=== PATIENT | female | born 1995 | race Two or more races ===

== ENCOUNTER 2018-05-15 16:28 | Emergency (ER) | payer OTHER ==
[~2018-05-15] VITALS: Ht 175.3 cm; Wt 56.7 kg
[~2018-05-15 16:28] MED LIST: ALLEGRA-D 12 H1 EACH PO; KETO10TA2 PO; PEPCID40 MG PO; TUSSI PRES-B L120 M1 PO; ZITHROMAX TRI-500 MG PO; ZOFRAN4 MG PO
== END 2018-05-15 20:02 | disposition home or self-care (01) ==
LOC: ER 16:28
DX: B34.9 Viral infection, unspecified (principal); K29.70 Gastritis, unspecified, without bleeding

== ENCOUNTER 2018-11-04 15:24 | Emergency (ER) | payer OTHER ==
[~2018-11-04] VITALS: Ht 175.3 cm; Wt 54.4 kg
== END 2018-11-04 20:49 | disposition home or self-care (01) ==
LOC: ER 15:24
DX: B34.9 Viral infection, unspecified (principal)

== ENCOUNTER 2019-02-09 13:51 | Emergency (ER) | payer OTHER ==
[~2019-02-09] VITALS: Ht 175.3 cm; Wt 54.4 kg
== END 2019-02-09 15:49 | disposition home or self-care (01) ==
LOC: ER 13:51
DX: B34.9 Viral infection, unspecified (principal)

== ENCOUNTER 2019-06-04 01:58 | Emergency (ER) | payer OTHER ==
[~2019-06-04] VITALS: Ht 175.3 cm; Wt 54.4 kg
[2019-06-04] MEDS ORDERED: NAPROXEN SODIU550 MG PO (03:57)
[2019-06-04] MEDS ORDERED: ORPHENADRINE C100 MG PO (03:57)
== END 2019-06-04 03:54 | disposition home or self-care (01) ==
LOC: ER 01:58
DX: S40.011A Contusion of right shoulder, initial encounter (principal); S30.0XXA Contusion of lower back and pelvis, initial encounter; S80.02XA Contusion of left knee, initial encounter; V49.49XA Driver injured in collision with other motor vehicles in traffic accident, initial encounter; Y93.89 Activity, other specified; Y92.488 Other paved roadways as the place of occurrence of the external cause; Y99.8 Other external cause status

== ENCOUNTER 2020-08-23 17:58 | Emergency (ER) | payer OTHER ==
[~2020-08-23] VITALS: Ht 175.3 cm; Wt 54.4 kg
[~2020-08-23 17:58] MED LIST changes: +NAPROXEN SODIU550 MG PO; +ORPHENADRINE C100 MG PO
== END 2020-08-23 22:47 | disposition home or self-care (01) ==
LOC: ER 17:58
DX: R51.9 Headache, unspecified (principal)

== ENCOUNTER 2020-11-10 20:54 | Emergency (ER) | payer OTHER ==
[~2020-11-10] VITALS: Ht 175.3 cm; Wt 54.4 kg
== END 2020-11-10 22:42 | disposition home or self-care (01) ==
LOC: ER 20:54
DX: J35.01 Chronic tonsillitis (principal)

== ENCOUNTER 2024-07-15 22:33 | Emergency (ER) | payer OTHER ==
[~2024-07-15] VITALS: Ht 175.3 cm; Wt 57.6 kg
[2024-07-15] MEDS ORDERED: BENZONATATE 100 MG CAPSULE PO ONE (23:00)
[2024-07-15] MEDS ORDERED: METHYLPREDNISOLONE SOD SUCC 40 MG VIAL IM ONE (23:00)
[2024-07-15] MEDS ORDERED: LEVALBUTEROL HCL 0.63 MG/3 ML SOLUTION IH ONE ×2 (23:00→23:43)
[2024-07-15] MEDS ORDERED: METHYLPREDNISOLONE SOD SUCC 40 MG VIAL ONE (23:11)
[2024-07-15 23:35] LABS: HEMATOCRIT 35.6 % (36.0-45.00); MEAN CELL VOLUME 90.6 fL (80.00-100.00); MEAN CORPUSCULAR HEMOGLOBIN 30.4 pg (27.00-32.0); MEAN CORPUSCULAR HGB CONC 33.5 g/dl (32.0-36.0); PLATELET COUNT 240 K/uL (150-450); RED BLOOD COUNT 3.93 M/uL (4.00-6.00); RED CELL DISTRIBUTION WIDTH 13.8 % (11.5-14.5)
[2024-07-15] MEDS ORDERED: BENZONATATE200 M1 PO (23:52)
[2024-07-15] MEDS ORDERED: PEPCID AC20 MG PO (23:52)
[2024-07-15] MEDS ORDERED: MONTELUKAST SODI4 M1 PO (23:52)
[2024-07-15] MEDS ORDERED: LEVALBUTER0.63 MG/3 IH (23:52)
== END 2024-07-16 01:09 | disposition home or self-care (01) ==
LOC: ER 22:35
PROVIDERS: General Practice
DX: J45.901 Unspecified asthma with (acute) exacerbation (principal); J00 Acute nasopharyngitis [common cold]; R05.9 Cough, unspecified; Z20.822 Contact with and (suspected) exposure to COVID-19; Z91.013 Allergy to seafood